=== PATIENT | female | born 1990 | race Two or more races ===

== ENCOUNTER 2020-03-06 18:56 | Inpatient (IN) ==
[2020-03-06] MEDS ORDERED: OXYTOCIN 30 UNITS/500 ML BAG IV PRN ×2 (20:15→22:20)
[2020-03-06] MEDS ORDERED: PENICILLIN G POTASSIUM 6 MU in DEXTROSE 5% 250 ML IV STA (20:37)
--- NOTE | 2020-03-06 21:00 | Ultrasound Report ---
ULTRASOUND LIMITED CLINICAL HISTORY: Unexpected with no care. Assess dates. COMPARISON STUDY: No priors. FINDINGS: Real-time, grayscale, and color Doppler sonography of the gravid uterus is performed. There is a single live intrauterine gestation with an estimated heart rate of 133 beats per minute. Positi oning is cephalic. The placenta is anterior and normal in appearance. There is a low volume of amniot ic fluid. A single pocket no fluid measures 3.2 cm. Head circumference could not be assessed. Biparietal diameter measures 9.57 cm, corresponding to an estimated age of 39 weeks 1 day. Femoral length measures 7.54 cm, corresponding to an estimated age of 38 weeks 4 days. IMPRESSION: 1. There is a single live intrauterine gestation with an estimated age of 38 weeks 4 days by femoral length measurement. 2. Note that this does not constitute a dedicated anatomic scan. 3. Low amniotic fluid volume with a single pocket measuring 3.2 cm. Clinical correlation will be requ ired. Electronically signed by: Rehan Zurita M.D. 03/06/2020 8:58 PM
[2020-03-06] MEDS: LACTATED RINGER'S 1,000 ML IV PRN (21:02)
[2020-03-06 21:31] LABS: Hematocrit (blood only) 30.8 % (37-47); Hemoglobin 10.6 g/dL (12.0-16.0); Mean Corpuscular Hemoglobin 27.8 pg (25-34); Mean Corpuscular Volume 80.8 fL (80-100); Mean Platelet Volume 10.9 fL (7.4-10.4); Platelet Count 268 K/uL (130-400); RDW Coefficient of Variation 13.2 % (11.5-14.5); RDW Standard Deviation 38.7 fL (36.4-46.3); Red Blood Count 3.81 M/uL (4.2-5.4)
[2020-03-06 21:48] LABS: Creatinine Clr Calc Pharmacy 150.1 ml/min; Est GFR (African American) 137.6; Est GFR (Non-African American) 118.7; Partial Thromboplastin Ratio 0.9; Partial Thromboplastin Time 26.2 Seconds (21.0-31.0); Prothrombin Time 10.1 Seconds (9.0-12.0)
[2020-03-06 21:53] LABS: Mean Corpuscular Hgb Conc 34.4 g/dL (32-36)
[2020-03-06 22:11] LABS: Hepatitis B Surface Antigen Neg (Neg); Rubella IgG Antibody Immune (Immune)
[2020-03-06] MEDS ORDERED: ALBUTEROL HFA 8 GM INHALER INH PRN (22:21)
--- NOTE | 2020-03-06 22:33 | History & Physical Report ---
Date of Service March 06, 2020 Assessment & Plan Admission and Anticipated Discharge Date Admission Date: March 06, 2020 29 yo primip who did not know she was presents to ER with uncontrollable leaking vaginal fluid which is found to be amniotic fluid. She is jossy mildly every 3-5 minutes but she is unaware of the contractions. Formal ultrasound confirms a viable at approximately 38 4/7 weeks gestation. no gross anomalies could be seen. amniotic fluid level was decreased and consistent with SPROM. She has no history of HTN but BP's elevated on admission- so PIH labs have also been drawn. No PIH symptoms currently except for the ongoing acid reflux. Routine labs as well as GC/chlam, GBS swabs done on admission. COVID 19 swab also sent for 2 day test. She denies any COVID symptoms. We will begin PCN for GBS prophylaxis now. If no dilation progress after 2nd dose has been infused will start pitocin augmentation. Peds is aware of this plan. History of Present Illness Primary Care Provider: Kaylah Gonzalez Cali Patient is a 29 yo female who presented to the ER with a chief complaint of leaking fluid from vaginal area. 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 It continued to trickle off & on with movement so she came to the ER for evaluation. She denies any pain or cramping prior to the episode of leaking fluid or since then. At the ER her test was positive and a quick look ultrasound by Korin Foster confirmed the presence of near term to term fetus in vertex presentation. She denies any recent weight gain; in fact, she feels she has lost some weight in her arms & face but otherwise her weight has been stable. She denies any bowel changes or urinary symptoms like frequent urination or pressure. She has a history of severe heartburn since high school. But no recent increase in reflux symptoms. The patient 's periods tend to be irratic but are generally light one day , then very heavy for 1 day with intense cramping followed by one day of spotting. She had 3 days of BRB 2 weeks ago which was significantly bucket hooker with no cramps . She also had a similar bleeding pattern about 7 weeks ago. Prior to this, she cannot recall her periods. She is using condoms for control but has not been consistent. She had been on BCP's until several years ago. NO history of abnormal pap smears or STD's. She recently moved to the area from [facility]. She is adopted and knows nothing about her biological family medical history. She is not , but boyfriend is here with her now. Not sure about whether she will keep the baby. She is still trying to get accustomed to the idea that she is and going to be delivering in the next 24 hours. . She has a history of exertion induced asthma for which she uses an Abuterol inhaler and a history of ADDHD for which she has taken Adderall but has not taken this med since May, when she no longer had health insurance. Allergies Allergy/AdvReac Type Severity Reaction Status Date / Time No Known Allergies Allergy Unverified 03/06/20 19:15 Home Medications Home Medications Medication Instructions Recorded Confirmed Type albuterol sulfate [ProAir HFA] 1 inh INHALATION Q2H PRN 03/06/20 03/06/20 History Patient History Medical History (Updated 03/06/20 @ 22:40 by Erica Gibson MD, FACOG) ADD (attention deficit disorder) 2000 Asthma Social History Smoking Status: Never smoker Second Hand Exposure: No; Hx Alcohol Use: No Hx Substance Use: No Preferred Language: Slovenian Communication Ability: Effective Social Service Assistant Required: No Beliefs That Will Affect Care: None marital status: Single Current Living Situation: Alone Other Information That Helps Us Care for You: No Feels Safe at Home: Yes Safety Concerns: Feels Safe At This Time Review of Systems All systems reviewed & are unremarkable except as noted in HPI & below Physical Exam Constitutional: WD/WN, vitals as above Respiratory: normal respiratory effort, lungs clear to auscultation Cardiovascular: RRR, no murmur, no edema Gastrointestinal (Abdomen): normal bowel sounds, soft, nontender, no hepatosplenomegaly Musculoskeletal: Extremities: no cyanosis Psychiatric: A+Ox3, euthymic affect Genitourinary: no vaginal lesions, no adnexal mass normal external appearance Speculum/Bimanual Exam: normal appearance of the vagina and + abnormal cervical discharge OB Exam Abdomen: + fundal height (34 cm), + vertex and + estimated weight (6-7 pounds) Manual OB Exam: + cervical dilation 4 cm, + cervical effacement 100%, + station (-3) high and + amniotic fluid clear and nitrazine positive OB Exam Monitor Tracing: + external FHT monitor used, + external uterine monitor used, + category I and + normal FHT variability on speculum exam , the cervix was clearly dilated with the head visible. grossly ruptured membranes clear fluid Results & Data ([facility]) Vital Signs (Past 12 Hours) Vital Signs Temp Pulse Resp BP 03/06/20 21:10 98.6 F 83 20 138/95 03/06/20 20:22 83 139/95 03/06/20 19:19 98.6 F 99 H 18 145/96 H 03/06/20 19:00 98.6 F 99 H 18 145/96 H Coding Level of Care Code 34938 Initial Inpt Care Lvl 3
[2020-03-06 22:40] LABS: Hepatitis C IgG 13Yrs+Old_Rflx Neg (Neg)
[2020-03-06] MEDS ORDERED: ePHEDrine sulfate 50 MG/ML AMP ONE (23:38)
[2020-03-06] MEDS ORDERED: BUPIVACAINE 0.25% 30 ML VIAL ONE (23:38)
[2020-03-06] MEDS ORDERED: fentaNYL citrate 100 MCG/2 ML VIAL ONE (23:38)
[2020-03-06] MEDS ORDERED: fentaNYL 2MCG/ML ROPIV 1.25MG/ML 100 ML BAG EPI ONE (23:39)
[2020-03-07] MEDS: PENICILLIN G POTASSIUM 3 MU in DEXTROSE 5% 100 ML IV PRN ×3 (00:36→08:23)
[2020-03-07] MEDS ORDERED: NALOXONE HCL 1 MG in SODIUM CHLORIDE 0.9% 1000ML 1,000 ML IV PRN (00:59)
[2020-03-07] MEDS ORDERED: NALOXONE HCL 0.4 MG/1 ML VIAL/CARP IV PRN (00:59)
[2020-03-07] MEDS ORDERED: ePHEDrine sulfate 50 MG/ML AMP IV PRN (00:59)
[2020-03-07] MEDS ORDERED: DiphenhydrAMINE HCL 50 MG/ML VIAL IV PRN (00:59)
[2020-03-07] MEDS ORDERED: ONDANSETRON INJ 2 MG/ML 2 ML VIAL IV PRN (00:59)
--- NOTE | 2020-03-07 00:59 | Anesthesiology Consultation ---
Date of Service March 07, 2020 Assessment & Plan Chart Review Chart Review: Patient NOT seen in Pre Admission Testing and Acceptable Risk for Labor Epidural Consults Requested none ASA ASA2 Proposed Anesthesia Anesthesia Type: Labor Epidural Risk / Benefits Reviewed With: PT / POA / Parent / Guardian, Accepts Plan and Informed Consent Obtained History Height/Weight Height: 5 ft 6 in Weight: 107.955 kg Allergies Allergy/AdvReac Type Severity Reaction Status Date / Time No Known Allergies Allergy Unverified 03/06/20 19:15 Medications Home Medications Medication Instructions Recorded Confirmed Last Taken albuterol sulfate [ProAir HFA] 1 inh INHALATION Q2H PRN 03/06/20 03/06/20 Unknown Active Medications Generic Name Dose Route Start Last Admin Trade Name Freq PRN Reason Stop Dose Admin Lactated Ringer's 1,000 mls @ 125 mls/hr 03/06/20 20:15 03/06/20 23:28 Lr IV 03/08/20 20:14 999 mls/hr .Q8H PRN Infusion L&D Protocol Protocol Penicillin G Potassium 3 mu/ 106 mls @ 100 mls/hr 03/06/20 20:15 03/07/20 00:36 Dextrose IV 03/16/20 20:14 100 mls/hr Q4H PRN Administration Give until delivery NPO Date Last Intake of Fluids: 03/06/20 Time Last Intake of Fluids: 22:00 Date Last Intake of Solids: 03/06/20 Time Last Intake of Solids: 18:00 Exercise / Class Metabolic Activity II 4-5 Yardwork/Stairs/Walk up hill Past Anesthesia History No Hx of Anesthesia Complications and No Family Hx of Anesthesia Complications History of PONV No Hx of PONV and No Hx of Motion Sickness Social History Smoking Status: Never smoker Hx Alcohol Use: No Hx Substance Use: No substance use type: does not use Physical Exam Vital Signs Last Vital Signs Temp 36.8 C 03/06/20 23:06 Pulse 82 03/07/20 00:57 Resp 18 03/06/20 23:06 BP 131/88 03/07/20 00:56 Pulse Ox 96 03/07/20 00:57 ENMT Mouth: no dentition abnormality Thyromental Distance: > or= 3.5 Finger Breadths Mallampati Class: II Neck normal visual inspection Respiratory normal respiratory effort Auscultation: lungs clear to auscultation bilaterally Cardiovascular Rate/Rhythm: regular rate and regular rhythm Psychiatric Orientation: alert Testing Laboratory Results 03/06/20 21:15 03/06/20 21:15 PT 10.1 Seconds (9.0-12.0) 03/06/20 21:15 INR 1.0 (0.9-1.1) 03/06/20 21:15 APTT 26.2 Seconds (21.0-31.0) 03/06/20 21:15 Blood Type A Positive 03/06/20 21:15 Antibody Screen NEGATIVE 03/06/20 21:15
--- NOTE | 2020-03-07 02:06 | Obstetrical Progress Note ---
Date of Service March 07, 2020 Assessment & Plan Admission and Anticipated Discharge Date Admission Date: March 06, 2020 Subjective patient requesting epidural analgesia which has been effective cervix exam is still 4 cm/100/-3 IUPC & electrode placed as it has been difficult to trace both contractions & heart rate will begin pitocin augmentation now that second dose of PCN has been infused. Results & Data ([facility]) Vital Signs (Past 12 Hours) Vital Signs Temp Pulse Resp BP Pulse Ox 03/07/20 02:02 79 97 03/07/20 01:57 88 97 03/07/20 01:53 82 140/88 03/07/20 01:52 90 99 03/07/20 01:47 82 99 03/07/20 01:46 111 H 88 L 03/07/20 01:42 101 H 96 03/07/20 01:37 83 96 03/07/20 01:34 93 H 16 135/78 03/07/20 01:32 95 H 96 03/07/20 01:30 16 03/07/20 01:27 82 96 03/07/20 01:22 101 H 96 03/07/20 01:17 94 H 97 03/07/20 01:16 90 18 117/79 03/07/20 01:12 103 H 18 125/75 97 03/07/20 01:07 87 16 122/75 93 03/07/20 01:02 79 96 03/07/20 01:01 83 16 132/85 03/07/20 01:00 98.2 F 18 03/07/20 00:57 82 96 03/07/20 00:56 91 H 18 131/88 03/07/20 00:54 80 18 130/85 03/07/20 00:52 88 16 130/86 97 03/07/20 00:50 86 16 131/95 88 L 03/07/20 00:48 78 16 140/92 03/07/20 00:47 78 94 03/07/20 00:45 66 18 135/95 03/07/20 00:42 82 97 03/07/20 00:38 102 H 79 L 03/07/20 00:37 97 H 98 03/07/20 00:32 79 97 03/06/20 23:06 98.2 F 100 H 18 144/91 H 03/06/20 21:10 98.6 F 83 20 138/95 03/06/20 20:22 83 139/95 03/06/20 19:19 98.6 F 99 H 18 145/96 H 03/06/20 19:00 98.6 F 99 H 18 145/96 H PG Care Time/CCT Total # of Minutes Spent Total Time Spent with Patient: Total time spent is greater than 50% in coordination of care (as documented) at patient's floor/unit and/or counseling patient: Coding Level of Care Code None
[2020-03-07 04:19] LABS: Protein Creatinine Ratio Urine 0.3 (0-0.2); Total Protein Urine Random 81.4 mg/dl (0-11.9)
[2020-03-07] MEDS: LACTATED RINGER'S 1,000 ML IV PRN (04:32)
[2020-03-07] MEDS: fentaNYL 2MCG/ML ROPIV 1.25MG/ML 100 ML BAG EPI PRN ×2 (06:11→09:11)
[2020-03-07 08:15] LABS: Amphetamines+Metham, Urine Neg (Neg); Barbiturates, Urine Neg (Neg); Benzodiazepine, Urine Neg (Neg); Cocaine, Urine Neg (Neg); MDMA (Ecstacy), Urine Neg (Neg); Methadone, Urine Neg (Neg); Opiate, Urine Neg (Neg); Phencyclidine, Urine Neg (Neg)
[2020-03-07] MEDS ORDERED: ACETAMINOPHEN 325 MG TAB PO PRN (09:50)
[2020-03-07] MEDS ORDERED: OXYCODONE/ACETAMINOPHEN 5mg/325mg TAB PO PRN (09:50)
[2020-03-07] MEDS ORDERED: SUPERCREAM 0.870% 15 GM JAR EXT PRN (09:55)
[2020-03-07] MEDS ORDERED: HYDROCORTISONE ACETATE 25 MG SUPP PR PRN (09:55)
[2020-03-07] MEDS ORDERED: DIPHTHERIA/TETANUS/PERTUSSIS 0.5 ML SYR/VIAL IM ONE (09:55)
[2020-03-07] MEDS ORDERED: BENZOCAINE 20% AER SPR 82.5 GM CAN EXT PRN (09:55)
[2020-03-07] MEDS ORDERED: bisacodyL 10 MG SUPP PR PRN (09:55)
[2020-03-07] MEDS ORDERED: OXYTOCIN 30 UNITS/500 ML BAG IV PRN (09:55)
--- NOTE | 2020-03-07 09:58 | Delivery Summary ---
Vaginal Delivery Summary Date of Service March 07, 2020 Pre-operative Diagnosis: suspected at term no care Post-operative Diagnosis: same Procedure: epidural pcn prophylaxis for gbs unknown pitocin iupc/fse left labial laceration and repair EBL: 400 Anesthesia: epidural Procedure: The patient pushed for 2 contractions to deliver a viable male infant in hank position. A loose nuchal cord was reduced without difficulty and the rest of the was then delivered without difficulty. The baby was vigorous. The nose and mouth were bulb suctioned and the infant was placed on the maternal abdomen for drying and attention. Cord was clamped and cut at about one minute of life. Cord blood and segment obtained. Placenta manually extracted, intact with a three vessel cord. Uterus was explored and no pocs noted. Cervix/sulci/rectum were intact. A left labial laceration was repaired in the normal standard fashion and a figure of eight suture placed in the opening of the vagina. Hemostasis obtained with dilute pitocin and fundal massage. Apgars were 9/9. Mother and baby doing well at the end of the delivery. [facility] [place] Vaginal Delivery Charge Vaginal Delivery Codes: 43258 vaginal delivery
--- NOTE | 2020-03-07 10:32 | Anesthesia Procedure Note ---
Date of Service March 07, 2020 Anesthesia Post Epidural Note Vital Signs Vital Signs: Temp Pulse Resp BP Pulse Ox 37.1 C 89 20 135/77 83 L 03/07/20 09:20 03/07/20 09:52 03/07/20 09:20 03/07/20 09:52 03/07/20 09:42 Pain Intensity Perineal: Pain Intensity: 0 Notes Mental Status: alert / awake / arousable and participated in evaluation Nausea / Vomiting: adequately controlled Pain: adequately controlled Airway Patency, RR, SpO2: stable & adequate BP & HR: stable & adequate Hydration State: stable & adequate Neuraxial Anesthesia: was administered and sensory block is resolving Anesthetic Complications: no major complications apparent Epidural: Removed without complications and With tip intact
[2020-03-07] MEDS: IBUPROFEN 600 MG TAB PO PRN (20:45)
[2020-03-07] MEDS: DOCUSATE SODIUM 100 MG CAP PO SCH (20:45)
[2020-03-08] MEDS: IBUPROFEN 600 MG TAB PO PRN ×2 (02:56→19:35)
[2020-03-08 06:43] LABS: Hematocrit (blood only) 26.4 % (37-47); Hemoglobin 8.9 g/dL (12.0-16.0)
--- NOTE | 2020-03-08 07:00 | Obstetrical Progress Note ---
Date of Service March 08, 2020 Assessment & Plan (1) Status post vaginal delivery: Patient is doing well. Is very happy with Membreno. Will get SS consult today. Routine pp care. Day #:: 1 Subjective Voiding: no voiding problems Passing Gas:: Yes Diet Tolerance:: regular diet Lochia:: Small Feeding Type:: breast feeding Patient has gotten used to the idea of having a baby. she plans on keeping him--Membreno. Physical Exam Constitutional WD/WN, vitals as above Cardiovascular Extremities: + pedal edema and + edema (+1); no calf tenderness Gastrointestinal (Abdomen) soft, nt, nd ff/nt at u Neurologic patellar DTR's 2+ bilat, sensation intact Psychiatric A+Ox3, euthymic affect Results & Data ([facility]) Vital Signs (Past 12 Hours) Vital Signs Temp Pulse Pulse Resp BP BP 03/08/20 03:30 36.9 C 55 L 16 112/70 03/08/20 00:00 37.0 C 62 16 137/77 03/07/20 20:35 36.9 C 75 18 145/94 H
[2020-03-08] MEDS: DOCUSATE SODIUM 100 MG CAP PO SCH ×2 (09:54→19:35)
[2020-03-08] MEDS: PRENATAL VITAMIN 1 TAB PO SCH (09:55)
[2020-03-08] MEDS ORDERED: bisacodyL 5 MG TABEC PO SCH (20:00)
[2020-03-09] MEDS: IBUPROFEN 600 MG TAB PO PRN (06:24)
--- NOTE | 2020-03-09 06:29 | Obstetrical Progress Note ---
Date of Service March 09, 2020 Tony Quiroz is a 29 y/o female ; POD #_ following delivery at _ weeks; doing well this morning; _abdominal cramping & _/10 pain well managed on analgesics; voiding _; tolerating meals overnight and able to ambulate some. Has some persistent lochia with some improvement this morning. Breast/Bottle feeding. Rubella immune. Blood type _. Physical Exam General: Alert, oriented. No acute distress. Cardiac: Regular rate and rhythm, no murmurs/rubs/gallops. Respiratory: Clear to auscultation bilaterally a/p, no wheezes/rales/rhonchi. No increased work of breathing. Symmetrical chest rise. No respiratory distress. Abdomen: Soft, nontender, nondistended. Bowel sounds present. Uterus: Uterine fundus firm, palpable _cm below umbilicus. Surgical scar clean and healing well. Lower Extremities: No lower extremity edema or swelling. No deep calf pain. Edgard's negative bilaterally. Results & Data Vital Signs (Past 12 Hours) Vital Signs Temp Pulse Resp BP 03/08/20 23:30 37.2 C 63 16 144/89 H 03/08/20 19:25 37.0 C 82 16 118/74
--- NOTE | 2020-03-09 06:33 | Obstetrical Progress Note ---
Date of Service <Vijay Woodard MD - Last Filed: 03/09/20 07:23> March 09, 2020 Assessment & Plan <Vijay Woodard MD - Last Filed: 03/09/20 07:23> (1) Status post vaginal delivery: - Feels well today. Eating well, voiding well, ambulating well. - Pain well controlled with ibuprofen 600mg Q4H PRN. - Routine post- care -- anticipate d/c today Day #:: 2 Subjective <Vijay Woodard MD - Last Filed: 03/09/20 07:23> Trinity is a 29 y/o female ; PPD #2 following spontaneous vaginal delivery at an estimated 38-4/7 weeks as estimated by ultrasound at admission. Doing well this morning. Minimal abdominal cramping & pain well managed on analgesics. Voiding urine appropriately. Tolerating meals overnight and able to ambulate some. Some persistent lochia with some improvement this morning. Breast feeding. Rubella immune. Blood type A+. Review of Systems Denies fever, chills, sweats Denies shortness of breath, difficulty breathing, chest pain, palpitations, chest pressure. Denies breast pain. Denies dysuria. Denies headache. Physical Exam <Vijay Woodard MD - Last Filed: 03/09/20 07:23> General: Alert, oriented. No acute distress. Cardiac: Regular rate and rhythm, no murmurs/rubs/gallops. Respiratory: Clear to auscultation bilaterally a/p, no wheezes/rales/rhonchi. No increased work of breathing. Symmetrical chest rise. No respiratory distress. Abdomen: Soft, nontender, nondistended. Bowel sounds present. Uterus: Uterine fundus firm, nontender and palpable 1cm below umbilicus. Lower Extremities: 1+ pitting edema. No deep calf pain. Edgard's negative bilaterally. Results & Data <Vijay Woodard MD - Last Filed: 03/09/20 07:23> Vital Signs (Past 12 Hours) Vital Signs Temp Pulse Resp BP 03/08/20 23:30 37.2 C 63 16 144/89 H 03/08/20 19:25 37.0 C 82 16 118/74 <Eileen Wagner MD, FACOG - Last Filed: 03/09/20 07:33> Co-Signing Physician Notes Resident Physician Supervision Note: I interviewed and examined the patient. Discussed with Dr. Woodard and agree with findings and plan as documented in the note. Any exceptions or clarifications are listed here: Doing well. Plan on d/c today. SS in yesterday to provide with info on support. They are keeping baby. PLan f/u with us in 6 weeks and instructed on how to contact us. Call with any concerns. Documented By: Eileen Wagner MD, FACOG Resident Activity Tracking <Vijay Woodard MD - Last Filed: 03/09/20 07:23> Resident Involvement: Resident Care Provided Care Provided: Adult Hospital Medicine
[2020-03-09] MEDS: PRENATAL VITAMIN 1 TAB PO SCH (08:44)
[2020-03-09] MEDS: DOCUSATE SODIUM 100 MG CAP PO SCH (08:44)
== END 2020-03-09 15:15 | disposition home or self-care (01) | DRG 807 ==
LOC: OPB 18:56 → 4S1 18:58 → 4E 18:58 → 4S1 20:15 → 4S2 03-07 14:10